=== PATIENT | female | born 1985 | race Caucasian/White ===

== ENCOUNTER 2019-04-09 15:27 | Day surgery (SDC) | payer OTHER ==
[2019-04-09] MEDS ORDERED: Betamet Acet/Betamet Na Ph 30 MG/5 ML VIAL ONE (16:43)
[2019-04-09] MEDS: Lactated Ringer's 1,000 ML IV SCH ×2 (16:45→18:01)
[2019-04-09] MEDS ORDERED: Betamet Acet/Betamet Na Ph 30 MG/5 ML VIAL IM SCH (18:00)
--- NOTE | 2019-04-10 03:51 | SS ---
DATE OF ADMISSION: 04/09/2019 DATE OF DISCHARGE: 04/09/2019 HISTORY OF PRESENT ILLNESS: This is a 33-year-old white female, G3, P1-1-0-2 at EGA 35 weeks one day, who reports irregular contractions which started two days prior to admission, which increased in frequency and intensity on the day of admission. care has been uneventful. She has a history of one delivery at 35 weeks. PAST MEDICAL HISTORY: No chronic disease. CURRENT MEDICATIONS: vitamins and iron. SURGERIES: None. OB HISTORY: One term vaginal delivery, one late vaginal delivery. She is group B strep colonized. FAMILY HISTORY: Noncontributory. SOCIAL HISTORY: She denies alcohol, tobacco, or drugs during this . PHYSICAL EXAMINATION: VITAL SIGNS: She is afebrile with normal pulse and blood pressure. HEENT: Within normal limits. LUNGS: Clear. HEART: Regular rate and rhythm. ABDOMEN: Gravid, soft. No unusual masses or tenderness. Sterile vaginal exam shows the cervix is closed, thick and high. LABOR AND DELIVERY COURSE: Ms. Cortes was observed on Labor and Delivery for approximately 5 hours. She was p.o. hydrated. Urinalysis was unremarkable. In light of her previous delivery history, she was given Celestone x1. Contractions spaced out and became less intense. heart tones remained reactive. She was discharged in good condition on 04/09/2019. DISCHARGE INSTRUCTIONS: Activity as tolerated. FOLLOWUP: 1. One day for Celestone. 2. Labor precautions were reviewed. Job ID: [id number]
== END 2019-04-09 19:00 | disposition home health service (06) ==
LOC: L&D/OP 15:27
PROVIDERS: ATTEND Family Medicine
DX: O47.03 False labor before 37 completed weeks of gestation, third trimester (principal); Z3A.35 35 weeks gestation of pregnancy; Z79.899 Other long term (current) drug therapy
CPT/HCPCS: 96360; 96361; 96372; 99283; J0702

== ENCOUNTER 2019-04-14 20:17 | Day surgery (SDC) | payer OTHER ==
[2019-04-14 20:47] VITALS: BP 116/55; TEMP 99; BMI 44.9
--- NOTE | 2019-04-14 21:01 | PDOC.LDHP ---
Labor and Delivery H&P Chief complaint: contractions HPI: 33 y/o at 35w6d, patient of Dr. Pantoja, presents to L&D with ctx. She reports they were a 6/[address] but now she doesn't notice them. Denies VB, LOF, or decreased FM. Received celestone last week for ctx. ROS neg for HEENT, cv, pulm, gi, gu, neuro, psych, skin, musculoskeletal or constitutional symptoms other than mentioned above. OB History Details: 1 prior term 1 prior late Current complications: none Past Medical History: None Current medications: pre-jose l vitamins, iron Previous surgical history: none Allergies/Adverse Reactions: Allergies Allergy/AdvReac Type Severity Reaction Status Date / Time No Known Allergies Allergy Verified 04/14/19 20:41 Social history: none - Physical Exam Vital signs reviewed and normal: yes General: NAD, resting Lungs: nonlabored breathing Abdomen: gravid Extremeties: no edema FHT: category 1 (140s, mod variability, + accels, no decels) [place] contractions every: irregular ctx - Vaginal Exam cm dilated: 0 (unchanged after 2 hours) Effacement: 0% Station: -3 - Assessment 33 y/o at 35w6d with no e/o PTL. Received celestone last week. status reassuring with reactive NST. - Plan -: D/c home with precautions. Advised to keep all appointments.
== END 2019-04-14 23:05 | disposition home or self-care (01) ==
LOC: L&D/OP 20:17
PROVIDERS: ATTEND Family Medicine
DX: O47.03 False labor before 37 completed weeks of gestation, third trimester (principal); Z3A.35 35 weeks gestation of pregnancy; Z79.899 Other long term (current) drug therapy
CPT/HCPCS: 99283

== ENCOUNTER 2019-04-22 19:40 | Day surgery (SDC) | payer OTHER ==
[2019-04-22 20:14] VITALS: BMI 44.3
[2019-04-22] MEDS ORDERED: hydrALAZINE 20 MG/ML VIAL SLOW IVP PRN (22:07)
[2019-04-22] MEDS ORDERED: Zolpidem Tartrate 5 MG TAB PO SCH (22:15)
--- NOTE | 2019-04-22 22:32 | PRG ---
DATE OF SERVICE: 04/22/2019 PRESENTING COMPLAINT: Contractions at 37 weeks' gestation. HISTORY OF PRESENT ILLNESS: Ms. Cortes is a 33-year-old, G3, P2, EDC of 05/13, complaining of contractions. Denies rupture of membranes. She reports an active fetus. [employer] HISTORY: x2. Blood type O positive, antibody negative, Pap negative, rubella nonimmune, HIV negative, group B strep positive. The patient has had a spontaneous vaginal delivery at 39 weeks and at 37 weeks. PAST MEDICAL HISTORY: None. PAST SURGICAL HISTORY: None. ALLERGIES: DENIES. MEDICATIONS: vitamins. SOCIAL HISTORY: Denies tobacco, alcohol, or drug use. FAMILY HISTORY: Noncontributory. REVIEW OF SYSTEMS: Noncontributory. PHYSICAL EXAMINATION: GENERAL: White female. VITAL SIGNS: Blood pressure 130/82, pulse 98, respirations 18, temperature 97.6. HEENT: Within normal limits. LUNGS: Clear to auscultation bilaterally. HEART: Regular rhythm. ABDOMEN: Soft, nontender. No rebound or guarding. Vulva without lesions. VAGINA: Without discharge. Cervix 250, -2, cephalic but lots of these. EXTREMITIES: No clubbing, cyanosis, or edema. monitoring is carried out for 20 minutes. Category 1 strip was noted. The patient was allowed to walk for 2 hours and rechecked after that. She was noted to have a category 1 heart rate tracing, contractions q.5 to 7 minutes and no cervical change. IMPRESSION: 37 weeks with [place] Fisher contractions. No evidence of active labor. PLAN: Discharge home. Ambien 5 mg p.o. x1. Keep scheduled followup with MANOLO Irizarry. Job ID: [id number]
== END 2019-04-22 22:33 | disposition home or self-care (01) ==
LOC: L&D/OP 19:40 → UNDOADMIN 22:21 → L&D 22:21 → L&D/OP 22:33
PROVIDERS: ATTEND Family Medicine
DX: O47.1 False labor at or after 37 completed weeks of gestation (principal); Z3A.37 37 weeks gestation of pregnancy
CPT/HCPCS: 76815; 99283

== ENCOUNTER 2019-04-29 09:19 | Inpatient (IN) | payer OTHER ==
[~2019-04-29 09:19] MED LIST: Bupivacaine 0.25% HCL 30 ML VIAL ONE; Bupivacaine/Epinephrine 0.25% 30 ML VIAL ONE
[2019-04-29 09:50] VITALS: BMI 44.3
[2019-04-29] MEDS ORDERED: HYDROcodone/Acetaminophen 5/325 mg Tablet PO PRN ×2 (10:41)
[2019-04-29] MEDS ORDERED: Lactated Ringer's 1,000 ML IV SCH (10:41)
[2019-04-29] MEDS ORDERED: Butorphanol Tartrate 1 MG/ML VIAL SLOW IVP PRN (10:41)
[2019-04-29] MEDS ORDERED: hydrALAZINE 20 MG/ML VIAL SLOW IVP PRN (10:41)
[2019-04-29] MEDS ORDERED: Ondansetron PF 4 MG/2 ML Vial IVP PRN ×2 (10:41→17:43)
[2019-04-29] MEDS ORDERED: Lidocaine 1% (PF) 30 ML VIAL SC PRN (10:41)
[2019-04-29] MEDS ORDERED: Promethazine HCl 25 MG/ML VIAL IM PRN ×2 (10:41→17:43)
[2019-04-29] MEDS ORDERED: NS / Oxytocin 40 units/1000ml 1,000 ML IV PRN (10:41)
[2019-04-29] MEDS ORDERED: NS w/ Oxytocin 10 units 500 ML IV SCH (10:41)
[2019-04-29] MEDS ORDERED: Penicillin G Potassium 5 MILL.UNITS in Sodium Chloride 0.9% 100 ML IVPB SCH (10:41)
[2019-04-29] MEDS ORDERED: Ibuprofen 800 MG TAB PO PRN (10:41)
[2019-04-29 10:51] LABS: Hemoglobin 11.5 g/dL (12.0-16.0); Mean Corpuscular HGB CONC 34.2 g/dL (32.0-36.0); Mean Corpuscular Hemoglobin 28.1 pg (27.0-31.0); Mean Corpuscular Volume 82.3 fL (78.0-98.0); Mean Platelet Volume 6.6 fL (7.4-10.4); Platelet Count 391 thou/uL (130-400); Red Blood Cell (RBC) Count 4.09 mill/uL (4.20-5.40); White Blood Cell (WBC) Count 13.1 thou/uL (4.8-10.8)
[2019-04-29 11:32] LABS: Syphilis Antibody Nonreactive (Nonreactive); Syphilis Antibody Index 0.03 S/CO (<1.00 Non-Reactive)
[2019-04-29 11:35] LABS: HBSAg Index 0.14 S/CO (0-0.99); Hep B Surf Ag Non-Reactive S/CO (NonReactive)
[2019-04-29] MEDS: Penicillin G 2.5 MILL.units 2.5 MILL.UNITS in Premix Bag 1 BAG IVPB SCH ×2 (15:16→19:18)
[2019-04-29] MEDS ORDERED: Fentanyl 4 mcg/Bup 0.1% Cadd 100 ML ONE (16:33)
[2019-04-29] MEDS ORDERED: Fentanyl 100 MCG/2 ML VIAL ONE (17:16)
[2019-04-29] MEDS ORDERED: Lactated Ringer's 500 ML IV PRN (17:43)
[2019-04-29] MEDS ORDERED: diphenhydrAMINE 50 MG/ML VIAL IVP PRN (17:43)
[2019-04-29] MEDS ORDERED: ePHEDrine/0.9% NaCl/PF SYRINGE 50 mg/10 ml SLOW IVP PRN (17:43)
[2019-04-29] MEDS ORDERED: Naloxone HCl 0.4 mg/ml Vial IVP PRN ×2 (17:43)
[2019-04-29] MEDS ORDERED: Acetaminophen 325 MG TAB PO PRN (17:43)
[2019-04-29] MEDS ORDERED: Communication Order-Pharmacy FS SCH (17:45)
[2019-04-29] MEDS ORDERED: Fentanyl 4 mcg/Bupivacaine 0.1% Cassette 100 ML EPIDURAL SCH (17:45)
[2019-04-29] MEDS ORDERED: diphenhydrAMINE 50 MG/ML VIAL ONE (17:47)
[2019-04-29] MEDS: Lactated Ringer's 1,000 ML IV SCH ×2 (21:30→23:54)
[2019-04-29] MEDS ORDERED: NS / Oxytocin 40 units/1000ml 1,000 ML ONE (22:11)
[2019-04-29] MEDS ORDERED: Lidocaine 1% (PF) 30 ML VIAL ONE (22:11)
[2019-04-30] MEDS ORDERED: Benzocaine-Menthol 82.5 ML CAN TOP PRN (02:47)
[2019-04-30] MEDS ORDERED: hydrALAZINE 20 MG/ML VIAL SLOW IVP PRN (02:47)
[2019-04-30] MEDS ORDERED: HYDROcodone/Acetaminophen 5/325 mg Tablet PO PRN (02:47)
[2019-04-30] MEDS ORDERED: NS / Oxytocin 40 units/1000ml 1,000 ML IV SCH (02:47)
[2019-04-30] MEDS ORDERED: diphenhydrAMINE 25 MG CAP PO PRN (02:47)
[2019-04-30] MEDS ORDERED: Ondansetron PF 4 MG/2 ML Vial IVP PRN (02:47)
[2019-04-30] MEDS ORDERED: Lanolin Ointment 7 GM TUBE TOP PRN (02:47)
[2019-04-30] MEDS ORDERED: Milk Of Magnesia 30 ML UDCUP PO PRN (02:47)
[2019-04-30] MEDS ORDERED: Preparation H Ointment 28 GM TUBE PR PRN (02:47)
[2019-04-30] MEDS ORDERED: Bisacodyl 10 MG SUPP PR PRN (02:47)
[2019-04-30] MEDS: Penicillin G 2.5 MILL.units 2.5 MILL.UNITS in Premix Bag 1 BAG IVPB SCH (03:06)
[2019-04-30] MEDS: Lactated Ringer's 1,000 ML IV SCH (03:06)
[2019-04-30] MEDS: Ibuprofen 800 MG TAB PO SCH ×3 (03:41→21:10)
[2019-04-30] MEDS: HYDROcodone/Acetaminophen 5/325 mg Tablet PO PRN ×2 (08:19→17:20)
[2019-04-30] MEDS: Prenatal Vitamin 1 TAB PO SCH (08:19)
[2019-04-30] MEDS: Ferrous Sulfate 325 MG TAB PO SCH ×2 (08:20→16:57)
[2019-04-30] MEDS: Docusate Calcium (SURFAK) 240 MG CAP PO SCH ×2 (08:20→21:10)
[2019-05-01] MEDS: Ibuprofen 800 MG TAB PO SCH ×3 (05:48→21:45)
[2019-05-01] MEDS: Ferrous Sulfate 325 MG TAB PO SCH ×2 (07:42→17:30)
[2019-05-01] MEDS: Prenatal Vitamin 1 TAB PO SCH (10:53)
[2019-05-01] MEDS: Docusate Calcium (SURFAK) 240 MG CAP PO SCH ×2 (10:53→21:45)
[2019-05-02] MEDS: Ibuprofen 800 MG TAB PO SCH ×2 (06:03→11:25)
[2019-05-02] MEDS: Ferrous Sulfate 325 MG TAB PO SCH ×2 (07:48→15:18)
[2019-05-02 08:13] VITALS: BP 105/52; TEMP 98.5
[2019-05-02] MEDS: Docusate Calcium (SURFAK) 240 MG CAP PO SCH (11:25)
[2019-05-02] MEDS: Prenatal Vitamin 1 TAB PO SCH (11:25)
[2019-05-02] MEDS ORDERED: Measles/Mumps/Rubella 10 MCG/0.5 ML VIAL SC ONE (12:00)
== END 2019-05-02 18:35 | disposition home or self-care (01) | DRG 807 ==
LOC: L&D/OP 09:19 → L&D 11:17 → 3SW 04-30 02:44
PROVIDERS: ADMIT Family Medicine; ATTEND Family Medicine
PROC: 10E0XZZ Delivery of Products of Conception, External Approach (ICD-10-PCS; principal; 2019-04-29)
DX: O99.824 Streptococcus B carrier state complicating childbirth (principal); Z37.0 Single live birth; O99.214 Obesity complicating childbirth; E66.01 Morbid (severe) obesity due to excess calories; O70.1 Second degree perineal laceration during delivery; Z3A.38 38 weeks gestation of pregnancy; O99.334 Smoking (tobacco) complicating childbirth
CPT/HCPCS: 36415; 51702; 85027; 86780; 86850; 86900; 86901; 87340; 90707; 99285; J1200; J2001; J2540; J2590; J3010; J3490; S0020

== ENCOUNTER 2022-11-08 14:53 | Outpatient (CLI) | payer OTHER | END 2022-11-08 14:54 | disposition home or self-care (01) | LOC: SCSMRI 14:53 | PROVIDERS: ATTEND Internal Medicine | DX: R51.9 Headache, unspecified (principal); H53.8 Other visual disturbances; D72.829 Elevated white blood cell count, unspecified; H05.30 Unspecified deformity of orbit; J34.89 Other specified disorders of nose and nasal sinuses | CPT/HCPCS: 70553 ==

== ENCOUNTER 2023-02-08 08:57 | Outpatient (CLI) | payer OTHER | END 2023-02-08 08:58 | disposition home or self-care (01) | LOC: ULT 08:57 | PROVIDERS: ATTEND Nurse Practitioner Family | DX: R11.15 Cyclical vomiting syndrome unrelated to migraine (principal); N28.1 Cyst of kidney, acquired | CPT/HCPCS: 76700 ==